=== PATIENT | female | born 1990 | race Caucasian/White ===

== ENCOUNTER 2016-09-29 06:41 | Emergency (ER) | payer BC | END 2016-09-29 08:28 | disposition home or self-care (01) | LOC: ER 06:41 | DX: J06.9 Acute upper respiratory infection, unspecified (principal); R05 Cough; H92.03 Otalgia, bilateral; E28.2 Polycystic ovarian syndrome; F17.210 Nicotine dependence, cigarettes, uncomplicated; Z79.899 Other long term (current) drug therapy | CPT/HCPCS: 87070; 87400; 87880; 99283 ==